=== PATIENT | male | born 1985 | race Two or more races ===

== ENCOUNTER 2019-08-25 12:41 | Emergency (ER) | payer OTHER ==
[~2019-08-25] VITALS: Ht 175.3 cm; Wt 86.2 kg
[2019-08-25] MEDS ORDERED: MUCINEX1200 MG PO (15:44)
[2019-08-25] MEDS ORDERED: OSEL75CA PO (15:44)
== END 2019-08-25 16:03 | disposition home or self-care (01) ==
LOC: ER 12:41
DX: R50.9 Fever, unspecified (principal)

== ENCOUNTER → 2021-08-06 | Emergency (ER) | payer OTHER ==
[~2021-08-06] VITALS: Ht 177.8 cm; Wt 90.7 kg
[~2021-08-06] MED LIST: MUCINEX1200 MG PO; OSEL75CA PO
== END | disposition left against medical advice (07) ==
LOC: ER 23:11
DX: Z53.21 Procedure and treatment not carried out due to patient leaving prior to being seen by health care provider (principal)